=== PATIENT | male | born 1940 | race Caucasian/White ===

== ENCOUNTER 2018-08-12 23:07 | Inpatient (IN) ==
[2018-08-13] MEDS ORDERED: PROCHLORPERAZINE 5 MG in SYRINGE 4 ML IV PRN (01:10)
[2018-08-13] MEDS ORDERED: GLUCAGON FOR INJ 1 MG VIAL SQ PRN (01:10)
[2018-08-13] MEDS ORDERED: DEXTROSE 50% 50 ML SYRINGE IV PRN (01:10)
[2018-08-13] MEDS ORDERED: ACETAMINOPHEN 325 MG TAB PO PRN (01:10)
[2018-08-13] MEDS ORDERED: TRAMADOL HCL 50 MG TABLET PO PRN (01:10)
[2018-08-13] MEDS ORDERED: CARBOHYDRATES FOR HYPOGLYCEMIA PO PRN (01:10)
[2018-08-13] MEDS ORDERED: GLUCOSE 40% GEL 15 GM TUBE PO PRN (01:10)
[2018-08-13] MEDS ORDERED: GLUCOSE 10 TABS/TUBE PO PRN (01:10)
[2018-08-13] MEDS ORDERED: MoRPHine SULFATE 4 MG/ML 1 ML CARP\\VIAL IV PRN (01:10)
[2018-08-13] MEDS ORDERED: NITROGLYCERIN SL 0.4 MG/TAB TAB SL PRN (01:10)
[2018-08-13 01:59] LABS: Basophils # (auto) 0.02 K/uL (0-0.2); Basophils % (auto) 0.3 %; Eosinophils # (auto) 0.12 K/uL (0-0.5); Eosinophils % (auto) 1.6 %; Hematocrit (blood only) 39.7 % (42-52); Hemoglobin 12.7 g/dL (14.0-18.0); Immature Granulocytes # (auto) 0.01 K/uL (0.00-0.02); Immature Granulocytes % (auto) 0.1 %; Lymphocytes # (auto) 1.85 K/uL (1.2-3.4); Lymphocytes % (auto) 24.7 %; Mean Corpuscular Volume 90.2 fL (80-100); Monocytes # (auto) 1.03 K/uL (0.11-0.59); Monocytes % (auto) 13.7 %; Neutrophils # (auto) 4.47 K/uL (1.4-6.5); Neutrophils % (auto) 59.6 %; Platelet Count 175 K/uL (130-400); RDW Coefficient of Variation 14.5 % (11.5-14.5); RDW Standard Deviation 48.1 fL (36.4-46.3)
[2018-08-13 02:00] LABS: HCO3 ABG 29 mmol/L (19-24); Oxygen Saturation ABG 94.5 % (90-95); PCO2 ABG 44 mmHg (35-46); PO2 ABG 70 mm/Hg (80-95); pH ABG 7.44 (7.35-7.45)
[2018-08-13 02:04] LABS: Allen Test Pos (Pos)
[2018-08-13 02:08] LABS: Partial Thromboplastin Ratio 1.1; Partial Thromboplastin Time 27.5 Seconds (21.0-31.0)
[2018-08-13 02:17] LABS: Alanine Aminotransferase 19 U/L (12-78); Albumin Level 3.4 gm/dl (3.4-5.0); Aspartate Aminotransferase 27 U/L (15-37); BUN Creatinine Ratio 13.7 (10-20); Blood Urea Nitrogen 12 mg/dl (7-18); Calcium 8.9 mg/dl (8.5-10.1); Carbon Dioxide 28 mmol/L (21-32); Chloride 101 mmol/L (98-107); Est GFR (African American) 93.2; Est GFR (Non-African American) 80.4; Glucose 221 mg/dl (70-99); Magnesium 2.6 mg/dl (1.8-2.4); Sodium 135 mmol/L (136-145)
[2018-08-13 02:29] LABS: Albumin Globulin Ratio 0.8 (0.9-2); Alkaline Phosphatase 107 U/L (45-117); Bilirubin,Total 1.4 mg/dl (0.2-1); Globulin 4.1 gm/dl (2.5-4.0); Total Protein 7.5 gm/dl (6.4-8.2)
[2018-08-13] MEDS ORDERED: INSULIN GLARGINE SOLOSTAR 100 UNITS/ML 3 ML PEN SC ONE (02:32)
[2018-08-13] MEDS ORDERED: XOPENEX/ATROVENT 1.25mg/0.5MG NEB COMBO NEB STA (02:37)
[2018-08-13] MEDS ORDERED: XOPENEX/ATROVENT 1.25mg/0.5MG NEB COMBO NEB PRN (02:37)
[2018-08-13] MEDS: INSULIN ASPART 100 UNITS/ML 3 ML PEN SC SCH ×5 (02:45→20:51)
--- NOTE | 2018-08-13 02:45 | History & Physical Report ---
Date of Service August 13, 2018 Assessment & Plan (1) ACS (acute coronary syndrome): hx CAD sp CABG, hx angioplasty Decompensated heart failure chronic systolic heart failure secondary to ischemic cardiomyopathy hx ICD chronic respiratory failure on home O2 Possible aspiration risk Traumatic L rib fracture, L 5th metacarpal fracture from mechanical fall last month hypertension, BP on the lower side DM 2, insulin requiring, suboptimal control as of recent inpatient hemoglobin A1c of 9.7 last July 2018 chronic anemia, hemoglobin at baseline past tobacco abuse PCU Antiplatelet Rx , beta-carrie (lower dose given borderline BP), statin; IV heparin Trend cardiac markers Strict I/Os, daily weights, CHF education TTE, Cardiology consult RE ACS, CHF Retrieve recent outpatient [facility] Cardiology records. Swallow eval Analgesia for traumatic left rib fracture, encourage incentive spirometry Orthopedics consult L fifth metacarpal fracture, continue hand splint Basal insulin adjusted for n.p.o. sips state pending swallow eval, ISS BG goal 140-180 PT/OT eval DVT prophylaxis. Heparin Full code History of Present Illness Chief Complaint: Shortness of breath Primary Care Provider: Adrienne Bhat History obtained from patient, family, and records. Patient is a fair historian. Medical history significant for chronic systolic heart failure secondary to ischemic cardiomyopathy, CAD status post CABG (1999, [facility]), hx of angioplasty/ICD (04/2018, [facility]), chronic respiratory failure on home O2, hypertension, hyperlipidemia, DM 2, insulin requiring, chronic anemia baseline hemoglobin of 12, past tobacco abuse. Recent confinement May 2018 [facility] for decompensated heart failure. 3 weeks ago. patient had a mechanical fall at home causing some soreness on the left chest and left forearm. Patient evaluated at [facility]. Imaging negative for rib fractures. The last week patient noted increasing shortness of breath mostly on exertion, feels he is retaining fluid again. Denies chest pain other than left-sided rib pain from few weeks ago. No unusual cough symptoms. Some leg swelling noted. Compliant with home diuretics. Patient admits that he has trouble complying with fluid restriction recommended by [facility] chemical educator. Patient brought to [facility] emergency room for evaluation yesterday afternoon. SBP noted to be 90s, patient received fluid bolus as per ER note. CT chest showed : 1. Acute appearing nondisplaced left lateral seventh rib fracture. 2. Moderate bilateral pleural effusions. 3. No pneumothorax. 4. Moderate compressive subsegmental atelectasis. 5. No pulmonary emboli are seen. 6. 48 x 40 mm ascending aortic aneurysm. CT abdomen pelvis showed : 1. Stranding in the subcutaneous fat in the left flank appears asymmetric, may reflect an area of soft tissue contusion. 2. No traumatic injury in the abdominal pelvic viscera. No acute bony pathology. 3. Incidental findings include question early cirrhosis, which may be cardiogenic, distal diverticulosis. Scattered mild free fluid probably related to CHF or cirrhosis. Left hand x-ray showed: IMPRESSION: Acute intra-articular fracture, base of the fifth metacarpal, minimal dorsal angulation of the diaphysis. EKG showed paced rhythm. Troponin noted to be 3.7. Patient transferred to [facility] for Cardiology services due to bed unavailability at [facility]. Left hand splint applied at [facility] emergency room prior to departure for [facility]. Patient noted to cough when PCU nurse attempted to give him some water/ice. Medical History as above Surgical History : CABG, ICD, eye surgery, humerus surgery Family History : Heart disease, stroke Personal/Social history : Past tobacco abuse, no EtOH intake, retired box truck washer Allergies Allergy/AdvReac Type Severity Reaction Status Date / Time SUZETTE Inhibitors AdvReac Verified 08/13/18 01:08 Home Medications Home Medications Medication Instructions Recorded Confirmed Type Novolog Mix 70-30 U-100 Insuln 50 units SC BID 08/13/18 08/13/18 History amitriptyline 10 mg PO HS 08/13/18 08/13/18 History aspirin [Aspir-81] 81 mg PO DAILY 08/13/18 08/13/18 History clopidogrel 75 mg PO DAILY 08/13/18 08/13/18 History docusate sodium 100 mg PO BID 08/13/18 08/13/18 History ezetimibe-simvastatin [Vytorin 1 tab PO DAILY 08/13/18 08/13/18 History 10-40] famotidine 20 mg PO BID 08/13/18 08/13/18 History furosemide 40 mg PO QPM 08/13/18 08/13/18 History furosemide 80 mg PO QAM 08/13/18 08/13/18 History gabapentin 300 mg PO TID 08/13/18 08/13/18 History isosorbide mononitrate 120 mg PO DAILY 08/13/18 08/13/18 History metoprolol succinate [Toprol XL] 100 mg PO DAILY 08/13/18 08/13/18 History omeprazole 20 mg PO DAILY 08/13/18 08/13/18 History polyethylene glycol 3350 [Miralax] 17 g PO DAILY 08/13/18 08/13/18 History potassium chloride 20 meq PO TID 08/13/18 08/13/18 History spironolactone 25 mg PO DAILY 08/13/18 08/13/18 History tamsulosin 0.4 mg PO DAILY 08/13/18 08/13/18 History Past Med/Surg History Medical History CAD (coronary artery disease) Diabetes mellitus, type 2 Dyslipidemia HTN (hypertension) Humeral shaft fracture Recurrent falls while walking Surgical History AICD (automatic cardioverter/defibrillator) present History of cardiac cath History of coronary artery bypass graft Social History Current Living Situation: Spouse Feels Safe at Home: Yes Safety Concerns: Feels Safe At This Time Smoking Status: Never smoker Do You Dip or Chew Tobacco: No Second Hand Exposure: No Tobacco Cessation Education Requested by Patient: No Hx Alcohol Use: No Hx Substance Use: No Beliefs That Will Affect Care: None Communication Ability: Effective Review of Systems As per HPI, all 10 systems reviewed, all other ROS negative Physical Exam 2 Vital Signs (Past 24 Hours): Last Vital Signs Pulse 82 08/13/18 02:05 Pulse Ox 93 08/13/18 01:10 Physical Exam: GENERAL: Comfortable, pleasant, no respiratory distress SKIN: Pallor , warm HEENT: Pale palpebral conjunctivae, no ptosis, moist buccal mucosa, nasal cannula in place NECK : Supple, no tenderness CHEST : Decreased breath sounds, occasional wheeze , tenderness left chest wall HEART : Diminished S1-S2, systolic murmur ABDOMEN: Some distention, nontender EXTREMITIES : minimal LE swelling/tenderness, LUE splint NEUROLOGIC : Coherent, no facial asymmetry, no other gross focality, gait and stance not assessed Results & Data Laboratory Results Laboratory Results WBC 7.50 K/uL (4.8-10.8) 08/13/18 01:46 RBC 4.40 M/uL (4.7-6.1) L 08/13/18 01:46 Hgb 12.7 g/dL (14.0-18.0) L 08/13/18 01:46 Hct 39.7 % (42-52) L 08/13/18 01:46 MCV 90.2 fL (80-100) 08/13/18 01:46 MCH 28.9 pg (25-34) 08/13/18 01:46 MCHC 32.0 g/dL (32-36) 08/13/18 01:46 RDW Std Deviation 48.1 fL (36.4-46.3) H 08/13/18 01:46 RDW Coeff of Joana 14.5 % (11.5-14.5) 08/13/18 01:46 Plt Count 175 K/uL (130-400) 08/13/18 01:46 MPV 11.0 fL (7.4-10.4) H 08/13/18 01:46 Immature Gran % (Auto) 0.1 % 08/13/18 01:46 Neut % (Auto) 59.6 % 08/13/18 01:46 Lymph % (Auto) 24.7 % 08/13/18 01:46 Morris % (Auto) 13.7 % 08/13/18 01:46 Eos % (Auto) 1.6 % 08/13/18 01:46 Baso % (Auto) 0.3 % 08/13/18 01:46 Immature Gran # (Auto) 0.01 K/uL (0.00-0.02) 08/13/18 01:46 Neut # (Auto) 4.47 K/uL (1.4-6.5) 08/13/18 01:46 Lymph # (Auto) 1.85 K/uL (1.2-3.4) 08/13/18 01:46 Morris # (Auto) 1.03 K/uL (0.11-0.59) H 08/13/18 01:46 Eos # (Auto) 0.12 K/uL (0-0.5) 08/13/18 01:46 Baso # (Auto) 0.02 K/uL (0-0.2) 08/13/18 01:46 APTT 27.5 Seconds (21.0-31.0) 08/13/18 01:46 PTT Ratio 1.1 08/13/18 01:46 ABG pH 7.44 (7.35-7.45) 08/13/18 01:46 ABG pCO2 44 mmHg (35-46) 08/13/18 01:46 ABG pO2 70 mm/Hg (80-95) L 08/13/18 01:46 ABG HCO3 29 mmol/L (19-24) H 08/13/18 01:46 ABG O2 Saturation 94.5 % (90-95) 08/13/18 01:46 ABG Base Excess 4.0 mEq/L (-9-1.8) H 08/13/18 01:46 Adiel Test Pos (Pos) 08/13/18 01:46 Oxygen Given 5L 08/13/18 01:46 Sodium 135 mmol/L (136-145) L 08/13/18 01:46 Potassium 4.0 mmol/L (3.5-5.1) 08/13/18 01:46 Chloride 101 mmol/L (98-107) 08/13/18 01:46 Carbon Dioxide 28 mmol/L (21-32) 08/13/18 01:46 Anion Gap 6.0 (3-11) 08/13/18 01:46 BUN 12 mg/dl (7-18) 08/13/18 01:46 Creatinine 0.91 mg/dl (0.6-1.4) 08/13/18 01:46 Est Cr Clr Drug Dosing Not Reportable 08/13/18 01:46 Est GFR ( Amer) 93.2 08/13/18 01:46 Est GFR (Non-Af Amer) 80.4 08/13/18 01:46 BUN/Creatinine Ratio 13.7 (10-20) 08/13/18 01:46 Glucose 221 mg/dl (70-99) H 08/13/18 01:46 POC Glucose 203 (70-99) H 08/13/18 01:35 Calcium 8.9 mg/dl (8.5-10.1) 08/13/18 01:46 Magnesium 2.6 mg/dl (1.8-2.4) H 08/13/18 01:46 Total Bilirubin 1.4 mg/dl (0.2-1) H 08/13/18 01:46 AST 27 U/L (15-37) 08/13/18 01:46 ALT 19 U/L (12-78) 08/13/18 01:46 Alkaline Phosphatase 107 U/L (45-117) 08/13/18 01:46 Troponin I 3.190 ng/ml (0-0.045) H* 08/13/18 01:46 Total Protein 7.5 gm/dl (6.4-8.2) 08/13/18 01:46 Albumin 3.4 gm/dl (3.4-5.0) 08/13/18 01:46 Globulin 4.1 gm/dl (2.5-4.0) H 08/13/18 01:46 Albumin/Globulin Ratio 0.8 (0.9-2) L 08/13/18 01:46 TSH 0.989 uIu/ml (0.300-4.500) 08/13/18 01:46 Diagnostic Findings Chest x-ray per my interpretation CHF EKG as per my interpretation : Paced rhythm
[2018-08-13] MEDS ORDERED: LEVALBUTEROL 1.25MG/0.5ML NEB INH STA (03:01)
[2018-08-13] MEDS ORDERED: IPRATROPIUM BROMIDE NEB SOLN 0.02% 2.5 ML VIAL INH STA (03:01)
[2018-08-13] MEDS ORDERED: LEVALBUTEROL 1.25MG/0.5ML NEB INH PRN (03:02)
[2018-08-13] MEDS ORDERED: IPRATROPIUM BROMIDE NEB SOLN 0.02% 2.5 ML VIAL INH PRN (03:02)
[2018-08-13] MEDS ORDERED: Heparin IV Standard *NO* Bolus SCH (03:06)
[2018-08-13] MEDS ORDERED: FUROSEMIDE 20 MG in SYRINGE 0 ML IV ONE ×2 (03:15→05:15)
[2018-08-13 03:17] LABS: INR 1.2 (0.9-1.1)
[2018-08-13] MEDS ORDERED: HEPARIN STANDARD DEXTROSE 25,000 UNITS/500 ML IV SCH (03:53)
[2018-08-13] MEDS ORDERED: INSULIN GLARGINE SOLOSTAR 100 UNITS/ML 3 ML PEN SQ SCH ×2 (05:00→09:00)
--- NOTE | 2018-08-13 06:48 | XRay Report ---
XR chest 1V portable CLINICAL HISTORY: resp distress dyspnea COMPARISON STUDY: No previous studies for comparison. FINDINGS: Mild cardia megaly. Prior median sternotomy. Prominent pulmonary vasculature. Diaphragms ar e smooth. Implantable cardiac pacemaker. IMPRESSION: Mild congestive heart failure. The above report was generated using voice recognition software. It may contain grammatical, syntax or spelling errors. Electronically signed by: Eric Toledo M.D. 08/13/2018 6:47 AM
[2018-08-13] MEDS: ASPIRIN 81 MG ECTAB PO SCH (08:29)
[2018-08-13] MEDS: FAMOTIDINE 20 MG TAB PO SCH ×2 (08:29→19:59)
[2018-08-13] MEDS: EZETIMIBE/SIMVASTATIN 10/40MG 1 TAB TAB PO SCH (08:29)
[2018-08-13] MEDS: CLOPIDOGREL BISULFATE 75 MG TAB PO SCH (08:30)
[2018-08-13] MEDS: DOCUSATE SODIUM 100 MG CAP PO SCH ×2 (08:38→19:52)
[2018-08-13 10:13] LABS: Partial Thromboplastin Ratio 2.4
--- NOTE | 2018-08-13 10:32 | Orthopedic Consultation ---
Date of Consultation August 13, 2018 Assessment & Plan (1) Hand fracture, left: Subacute fracture of the left hand, will confirm fracture and positioning with x-rays of the hand and wrist. Continue volar splint for comfort, nonweightbearing left upper extremity, ice and elevation. Thank you for the consultation History of Present Illness Reason for Consultation: Left hand fracture Attending Physician: Liliane Gross DO History of Present Illness Patient is a 78-year-old male who was admitted to [facility] secondary to ACS protocol. Elevated troponins. Reports fall 1 month prior for which she sustained rib fractures, at [facility]. He has been in a rehab center since his fall. Reports x-ray done at that time of his left hand which demonstrated a fracture, patient a poor historian and unsure where his injury is. Patient denies any repeat injury or falls onto the left hand in the last 4 weeks. Does admit the pain to the ulnar aspect of his hand as well as ulnar aspect of his wrist. Denies any numbness or tingling left upper extremity or associated and wheeze. He has not followed up with orthopedics for his left hand. Allergies Allergy/AdvReac Type Severity Reaction Status Date / Time SUZETTE Inhibitors AdvReac Verified 08/13/18 01:08 Home Medications Home Medications Medication Instructions Recorded Confirmed Type Novolog Mix 70-30 U-100 Insuln 50 units SC BID 08/13/18 08/13/18 History amitriptyline 10 mg PO HS 08/13/18 08/13/18 History aspirin [Aspir-81] 81 mg PO DAILY 08/13/18 08/13/18 History clopidogrel 75 mg PO DAILY 08/13/18 08/13/18 History docusate sodium 100 mg PO BID 08/13/18 08/13/18 History ezetimibe-simvastatin [Vytorin 1 tab PO DAILY 08/13/18 08/13/18 History 10-40] famotidine 20 mg PO BID 08/13/18 08/13/18 History furosemide 40 mg PO QPM 08/13/18 08/13/18 History furosemide 80 mg PO QAM 08/13/18 08/13/18 History gabapentin 300 mg PO TID 08/13/18 08/13/18 History isosorbide mononitrate 120 mg PO DAILY 08/13/18 08/13/18 History metoprolol succinate [Toprol XL] 100 mg PO DAILY 08/13/18 08/13/18 History omeprazole 20 mg PO DAILY 08/13/18 08/13/18 History polyethylene glycol 3350 [Miralax] 17 g PO DAILY 08/13/18 08/13/18 History potassium chloride 20 meq PO TID 08/13/18 08/13/18 History spironolactone 25 mg PO DAILY 08/13/18 08/13/18 History tamsulosin 0.4 mg PO DAILY 08/13/18 08/13/18 History Patient History Medical History CAD (coronary artery disease) Diabetes mellitus, type 2 Dyslipidemia HTN (hypertension) Humeral shaft fracture Recurrent falls while walking Surgical History AICD (automatic cardioverter/defibrillator) present History of cardiac cath History of coronary artery bypass graft Social History Current Living Situation: Spouse Feels Safe at Home: Yes Safety Concerns: Feels Safe At This Time Smoking Status: Never smoker Do You Dip or Chew Tobacco: No Second Hand Exposure: No Tobacco Cessation Education Requested by Patient: No Hx Alcohol Use: No Hx Substance Use: No Beliefs That Will Affect Care: None Communication Ability: Effective Review of Systems Constitutional: as per Subjective / HPI Physical Exam 2 Vital Signs (Past 24 Hours): Last Vital Signs Temp 37 C 08/13/18 07:37 Pulse 88 08/13/18 07:37 Resp 20 08/13/18 07:37 BP 112/61 08/13/18 07:37 Pulse Ox 96 08/13/18 07:37 Physical Exam: Left upper extremity neurovascular sensory intact, +2 radial pulse, capillary refill less than 2 seconds, intact median/radial/ulnar/AIN/PIN , compartment soft, there is point tenderness to the midshaft of the fourth metatarsal and the fifth metatarsal, mild edema, there is point tenderness to the ulnar styloid. Painless range of motion of the wrist, there is mild discomfort with range of motion of the fourth and fifth digits. Skin is clean dry and intact.
[2018-08-13 10:34] LABS: Partial Thromboplastin Time 63.1 Seconds (21.0-31.0)
--- NOTE | 2018-08-13 11:05 | XRay Report ---
XR hand LT min 3V routine CLINICAL HISTORY: hx hand fracture trauma. Pain. COMPARISON: None. DISCUSSION: Patient is in casting material. Moderate generalized degenerative change. No well-defined fracture within limitations discussed above. There is no evidence for soft tissue swelling. IMPRESSION: Degenerative change. Casting material obscures detail. The above report was generated using voice recognition software. It may contain grammatical, syntax or spelling errors. Electronically signed by: Eric Toledo M.D. 08/13/2018 11:04 AM
--- NOTE | 2018-08-13 11:06 | XRay Report ---
XR wrist LT min 3V routine CLINICAL HISTORY: hx hand fracture, fall 4 weeks prior COMPARISON: None. DISCUSSION: Casting disc material obscures detail. Moderate generalized degenerative change. Possible old fracture distal radius. There is no evidence for soft tissue swelling. IMPRESSION: Limited study suggesting a potential old fracture distal radius. Details obscured by over lying casting material. The above report was generated using voice recognition software. It may contain grammatical, syntax or spelling errors. Electronically signed by: Eric Toledo M.D. 08/13/2018 11:05 AM
[2018-08-13] MEDS: GABAPENTIN 300 MG CAP PO SCH ×2 (14:31→19:58)
--- NOTE | 2018-08-13 14:31 | Hospitalist Progress Note ---
Date of Service August 13, 2018 Assessment & Plan (1) Acute on chronic systolic heart failure: History of CAD status post CABG and angioplasty. Elevated troponin, but no chest pain is reported. Clinically this is more consistent with demand ischemia in heart failure. Heparin stopped. He appears somewhat volume up with LE swelling, lungs are clear. Lasix for diuresis. Monitor daily standing weights. Continue medical management including aspirin, Plavix, Vytorin, Metoprolol. He is intolerant of ACEI. Uncertain reaction, may tolerate ARB or he also meets criteria for initiating Entresto unless he had angioedema with ACEI in the past. Will defer this to Cardiology. ICD in place. (2) Chronic hypoxemic respiratory failure: on home oxygen (3) Left wrist fracture: (4) Left rib fracture: (5) Status post fall: 4 weeks ago. Ortho splinted wrist. Cont supportive care for pain control of fractures. (6) DMII (diabetes mellitus, type 2): Uncontrolled, increase Lantus and tighten control of ISS and carb coverage. (7) Anemia: chronic and at baseline. (8) Conjunctivitis: Likely viral in the setting of recent cold symptoms and no purulent drainage, however, will empirically treat with antibiotic drops and offer Refresh Tears for comfort. It is possible this is allergic conjunctivitis, however, we do not have antihistamine ophthalmic drops on formulary, and I feel a systemic antihistamine is a poor choice in this elderly man already exhibiting some confusion. (9) DVT prophylaxis: heparin drip, which will stop. Start Lovenox in am. Liliane Gross DO [facility] Hospitalist Subjective 78-year-old man transferred from [place] for chest pain and shortness of breath. The patient states that at baseline he has decreased exercise tolerance and shortness of breath. He is on home oxygen at 2 L. Per the nurse his spouse was telling her he requires 3 L with ambulation. The patient has swelling in his legs and feet which is intermittent for him. He states that when he wakes up in the morning they are not as bad but then as the day progresses the swelling progresses however, this comes and goes. He denies any fevers or chills he denies any cough. He denies any weight gain. He reports being approximately 210 to to 15 pounds at baseline. He weighs 211 pounds today. When I pressed him for the reason he sought immediate emergent medical attention in the setting of these chronic medical symptoms, he said "I felt like I was just going to ." He states that he thinks he scared himself into going. He reports none of his chronic medical symptoms were actually worse. Physical Exam 2 Vital Signs (Past 24 Hours): Last Vital Signs Temp 36.5 C 08/13/18 11:02 Pulse 83 08/13/18 11:02 Resp 20 08/13/18 11:02 BP 97/61 L 08/13/18 11:02 Pulse Ox 98 08/13/18 11:02 CONSTITUTIONAL: WNWD, vitals as above, generally well-appearing EYES: injected conjuntiva on the L with clear irritation, no scleral icterus ENT: MMM NECK: trachea midline, no lymphadenopathy, normal thyroid RESPIRATORY: clear to auscultation bilaterally, no crackles, rales or wheezes, normal respiratory effort CARDIOVASCULAR: regular rate and rhythm, S1 and 2 heard without murmurs, gallops or rubs, no JVD, lower extremity swelling bilaterally GASTROINTESTINAL: normal bowel sounds, soft, nontender, nondistended MUSCULOSKELETAL: generalized weakness, L wrist in splint SKIN: warm and dry NEUROLOGIC: No facial palsy, no dysarthria. CN 2-12 grossly intact, normal cognition but obvious memory issues, oriented, normal speech PSYCHIATRIC: alert cooperative and oriented to person, place and time. Results & Data Laboratory Results Cardiac Enzymes 08/13/18 Range/Units 09:45 Troponin I 2.040 H* (0-0.045) ng/ml Diagnostic Findings XR wrist LT min 3V routine CLINICAL HISTORY: hx hand fracture, fall 4 weeks prior COMPARISON: None. DISCUSSION: Casting disc material obscures detail. Moderate generalized degenerative change. Possible old fracture distal radius. There is no evidence for soft tissue swelling. IMPRESSION: Limited study suggesting a potential old fracture distal radius. Details obscured by overlying casting material. XR chest 1V portable CLINICAL HISTORY: resp distress dyspnea COMPARISON STUDY: No previous studies for comparison. FINDINGS: Mild cardia megaly. Prior median sternotomy. Prominent pulmonary vasculature. Diaphragms are smooth. Implantable cardiac pacemaker. IMPRESSION: Mild congestive heart failure. Medications Administered Current Inpatient Medications Acetaminophen (Tylenol) 650 mg PO Q4H PRN PRN Reason: Pain or Fever Stop: 09/12/18 01:09 Amitriptyline HCl (Elavil) 10 mg PO HS [facility] Stop: 09/12/18 20:59 Last Admin: 08/13/18 19:58 Dose: 10 mg Artificial Tears (Artificial Tears) 2 drops OPL Q4H PRN PRN Reason: dry, irritated eyes Stop: 09/12/18 17:41 Aspirin (Ecotrin) 81 mg PO DAILY [facility] Stop: 09/12/18 08:59 Last Admin: 08/13/18 08:29 Dose: 81 mg Clopidogrel Bisulfate (Plavix) 75 mg PO DAILY [facility] Stop: 09/12/18 08:59 Last Admin: 08/13/18 08:30 Dose: 75 mg Dextrose (Dextrose 50%) 25 - 50 ml IV UD PRN; Protocol PRN Reason: Hypoglycemia Protocol Stop: 09/12/18 01:09 Docusate Sodium (Colace) 100 mg PO BID [facility] Stop: 09/12/18 08:59 Last Admin: 08/13/18 19:52 Dose: Not Given Ezetimibe/Simvastatin (Vytorin 10/40 Mg) 1 tab PO DAILY [facility] Stop: 09/12/18 08:59 Last Admin: 08/13/18 08:29 Dose: 1 tab Famotidine (Pepcid) 20 mg PO BID [facility] Stop: 09/12/18 08:59 Last Admin: 08/13/18 19:59 Dose: 20 mg Gabapentin (Neurontin) 300 mg PO TID [facility] Stop: 09/12/18 13:59 Last Admin: 08/13/18 19:58 Dose: 300 mg Glucagon (Glucagen) 1 mg SQ UD PRN; Protocol PRN Reason: Hypoglycemia Protocol Stop: 09/12/18 01:09 Glucose (Glucose 40%) 15 - 30 gm PO UD PRN; Protocol PRN Reason: Hypoglycemia Protocol Stop: 09/12/18 01:09 Glucose (Dex4 Glucose) 4 - 8 tabs PO UD PRN; Protocol PRN Reason: Hypoglycemia Protocol Stop: 09/12/18 01:09 Prochlorperazine 5 mg/ Syringe 5 mls @ 5 mls/min IV Q6H PRN PRN Reason: Nausea And Vomiting Stop: 09/12/18 01:09 Insulin Aspart (Novolog Flexpen) 0 units SC ACHS [facility] Stop: 09/12/18 01:59 Last Admin: 08/13/18 20:51 Dose: 1 units Insulin Glargine (Lantus Solostar Pen) 15 units SQ BID [facility] Stop: 09/12/18 20:59 Last Admin: 08/13/18 20:51 Dose: 15 units Ipratropium [place] (Atrovent 0.02% 0.5mg/2.5ml) 0.5 mg INH Q4H PRN PRN Reason: Shortness Of Breath Or Wheezing Stop: 09/12/18 03:01 Levalbuterol HCl (Xopenex 1.25mg/0.5ml Neb) 1.25 mg INH Q4H PRN PRN Reason: Shortness Of Breath Or Wheezing Stop: 09/12/18 03:01 Metoprolol Tartrate (Lopressor) 12.5 mg PO BID [facility] Stop: 09/12/18 20:59 Last Admin: 08/13/18 19:58 Dose: 12.5 mg Miscellaneous (Carbohydrates For Hypoglycemia) 15 - 30 gm PO UD PRN PRN Reason: Hypoglycemia Treatment Stop: 09/12/18 01:09 Morphine Sulfate (Morphine Sulfate) 4 mg IV Q4H PRN PRN Reason: Pain Stop: 08/27/18 01:09 Nitroglycerin (Nitrostat) 0.4 mg SL UD PRN PRN Reason: Chest Pain Stop: 09/12/18 01:09 Pantoprazole Sodium (Protonix) 40 mg PO DAILY [facility] Stop: 09/13/18 08:59 Polyethylene Glycol (Miralax Powder Packet) 17 gm PO DAILY [facility] Stop: 09/13/18 08:59 Polymyxin/Trimethoprim Sulfate (Polytrim) 2 drops OPL QID [facility] Stop: 08/18/18 20:59 Last Admin: 08/13/18 19:56 Dose: 2 drops Tamsulosin HCl (Flomax) 0.4 mg PO DAILY [facility] Stop: 09/13/18 08:59 Tramadol HCl (Ultram) 25 mg PO Q4H PRN PRN Reason: Pain Stop: 09/12/18 01:09
--- NOTE | 2018-08-13 16:57 | Consultation Report ---
DATE OF CONSULTATION: 08/13/2018 Cardiology Consultation. CONSULTATION REQUESTED BY: Dr. Montoya. REASON FOR CONSULTATION: Acute decompensated systolic heart failure and troponin elevation. HISTORY OF PRESENT ILLNESS: Mr. Tapia is a very pleasant, yet somewhat confused 78-year-old gentleman, who was sent to [facility] from [facility] on 08/13/2018 after the patient presented with complaints of fluid retention. The patient is a little confused during the time of the interview and does not remember when he went to the Emergency Department or why but does remember that he has been filling up with fluid lately. He states that he was recently admitted to [facility] for decompensated heart failure. Unfortunately, no significant workup was undertaken at that time, and the patient's primary inspector type is not within [facility] outpatient medical records either, but the patient was apparently diuresed at [facility] and discharged to rehab, and then from the rehab, he was discharged to home. He did have a fall at home several weeks ago, which caused some left chest and left forearm discomfort, but again he notes over the last several days he has been having some increasing dyspnea with exertion and increasing lower extremity edema, but he denies experiencing any chest pain, palpitations, lightheadedness, dizziness, or syncope. He went to [facility] on 08/12/2018. There he was found to be relatively hypotensive and given IV bolus and then requested that he be transferred to [facility] after several other hospitals were full. Currently, the patient is at rest without complaint. PAST SURGICAL HISTORY: 1. Coronary bypass grafting surgery in 1999 at [facility], unknown grafts. 2. Recent ICD placement, 04/2018. MEDICAL ILLNESSES: 1. Coronary artery disease, status post CABG. 2. Ischemic cardiomyopathy, EF 33% by outpatient cardiac MRI with very limited viability. 3. Diabetes. 4. Dyslipidemia. 5. Hypertension. 6. Ambulatory dysfunction with recurrent falls. 7. Questionable dementia. FAMILY HISTORY: Noncontributory. SOCIAL HISTORY: Patient is a former smoker. Denies any alcohol or recreational drug use. REVIEW OF SYSTEMS: As per HPI, all other review of systems reviewed and negative at this time. ALLERGIES: SUZETTE INHIBITORS. MEDICATIONS AN OUTPATIENT: 1. Aspirin 81 mg daily. 2. Plavix 75 mg daily. 3. Vytorin 10/40 mg daily. 4. Lasix 40 mg q.p.m. and 80 mg q.a.m. 5. Neurontin 300 mg t.i.d. 6. Imdur 120 mg daily. 7. Metoprolol succinate 100 mg daily. 8. Spironolactone 25 mg daily. 9. Potassium chloride 20 mEq t.i.d. 10. Insulin as directed. PHYSICAL EXAMINATION: VITAL SIGNS: Temperature 36.5, pulse 83, respiratory rate 12, blood pressure 97/61. GENERAL: Awake, alert, oriented to person and place but not time, in no acute distress. HEENT: Normocephalic and atraumatic. Pupils equal, round, and reactive to light and accommodation. Extraocular muscles intact. Anicteric sclerae. Moist mucous membranes. NECK: No JVD, no bruit. CARDIOVASCULAR: Regular but distant. Unable to appreciate any murmurs, rubs, or gallops. PULMONARY: Scant bibasilar crackles, otherwise clear. No rhonchi or wheezing. ABDOMEN: Bowel sounds x4, soft. No rebound, guarding, tenderness. No organomegaly. EXTREMITIES: No clubbing or cyanosis. +2 pedal pulses bilaterally. SKIN: Warm and dry. TEST RESULTS: A 2D echocardiogram was read as no previous study or report in [employer] system for comparison, normal LV chamber size, with moderate concentric LVH, sigmoid appearing septum, severely reduced LV systolic function, EF 30%-35%, akinesis of the anterior, inferior, septal, and apical orozco. Dyskinetic anterior septal wall motion consistent with pacemaker activation. Normal wall motion of the inferior lateral wall with moderate hypokinesis of the inferior and anterior lateral orozco. Reduced RV systolic function, moderate aortic valve sclerosis without stenosis, moderate to severe mitral regurgitation, mild to moderate tricuspid regurgitation. Severe left atrial enlargement. Of note, the patient's wall motion abnormalities are consistent with wall motion abnormalities noted on cardiac MRI from 03/08/2018. LABORATORY STUDIES OF SIGNIFICANCE: Troponin on presentation of 3.2. Followup troponin of 2.04. IMPRESSION: 1. Acute decompensated systolic heart failure. 2. Troponin elevation, likely secondary to demand ischemia. 3. Underlying severe coronary artery disease with very limited viability by cardiac MRI, 02/2018. 4. Ischemic cardiomyopathy, ejection fraction 30%-35%, status post ICD placement. RECOMMENDATIONS: It is my pleasure to see Mr. Tapia in consultation today. From a cardiac standpoint, given the patient's extensive history, limited viability, and lack of chest discomfort, I do not believe that further ischemic workup or intervention would be beneficial at this time. Instead, the patient does examine his volume overload, and his initial complaints were that of volume overload, so I recommended continuing with the diuresis that has already been started. Obviously his electrolytes will be followed and repleted as necessary. Otherwise, he will be continued on all of his other outpatient medical regimen and will follow his volume status clinically.
[2018-08-13] MEDS ORDERED: FUROSEMIDE 40 MG in SYRINGE 0 ML IV ONE (17:00)
[2018-08-13] MEDS ORDERED: ARTIFICIAL TEARS OPL PRN (17:42)
[2018-08-13] MEDS: TRIMETHOPRIM/POLYMYXIN B OPL SCH (19:56)
[2018-08-13] MEDS: METOPROLOL TARTRATE 25 MG TAB PO SCH (19:58)
[2018-08-13] MEDS ORDERED: INSULIN GLARGINE SOLOSTAR 100 UNITS/ML 3 ML PEN SC SCH (20:00)
[2018-08-13] MEDS: INSULIN GLARGINE SOLOSTAR 100 UNITS/ML 3 ML PEN SQ SCH (20:51)
[2018-08-13] MEDS ORDERED: AMITRIPTYLINE HCL 10 MG TAB PO SCH (21:00)
[2018-08-14 06:57] LABS: Hematocrit (blood only) 40.1 % (42-52); Hemoglobin 12.5 g/dL (14.0-18.0); Mean Corpuscular Hgb Conc 31.2 g/dL (32-36); Mean Corpuscular Volume 90.9 fL (80-100); Mean Platelet Volume 11.5 fL (7.4-10.4); Platelet Count 164 K/uL (130-400); RDW Coefficient of Variation 14.6 % (11.5-14.5); RDW Standard Deviation 48.4 fL (36.4-46.3); Red Blood Count 4.41 M/uL (4.7-6.1); White Blood Count 6.72 K/uL (4.8-10.8)
[2018-08-14 07:12] LABS: Partial Thromboplastin Ratio 1.1; Partial Thromboplastin Time 27.8 Seconds (21.0-31.0)
[2018-08-14 07:38] LABS: Calcium 8.9 mg/dl (8.5-10.1); Creatinine Clr Calc Pharmacy 72.6 ml/min; Est GFR (African American) 87.4; Est GFR (Non-African American) 75.4; Potassium 3.5 mmol/L (3.5-5.1)
[2018-08-14] MEDS: DOCUSATE SODIUM 100 MG CAP PO SCH ×2 (07:38→20:34)
[2018-08-14] MEDS: PANTOprazole 40 MG TAB PO SCH (07:43)
[2018-08-14] MEDS: FAMOTIDINE 20 MG TAB PO SCH ×2 (07:43→20:27)
[2018-08-14] MEDS: GABAPENTIN 300 MG CAP PO SCH ×3 (07:44→20:28)
[2018-08-14] MEDS: TRIMETHOPRIM/POLYMYXIN B OPL SCH ×3 (07:44→17:00)
[2018-08-14] MEDS: EZETIMIBE/SIMVASTATIN 10/40MG 1 TAB TAB PO SCH (07:44)
[2018-08-14] MEDS: METOPROLOL TARTRATE 25 MG TAB PO SCH ×2 (07:45→20:28)
[2018-08-14] MEDS: ASPIRIN 81 MG ECTAB PO SCH (07:45)
[2018-08-14] MEDS: TAMSULOSIN HCL 0.4 MG CAP PO SCH (07:47)
[2018-08-14] MEDS: CLOPIDOGREL BISULFATE 75 MG TAB PO SCH (07:47)
[2018-08-14] MEDS: POLYETHYLENE (MIRALAX) 17 GM PACK PO SCH (07:47)
[2018-08-14] MEDS: INSULIN ASPART 100 UNITS/ML 3 ML PEN SC SCH ×4 (07:49→20:28)
[2018-08-14] MEDS: INSULIN GLARGINE SOLOSTAR 100 UNITS/ML 3 ML PEN SQ SCH ×2 (07:50→20:30)
--- NOTE | 2018-08-14 09:44 | Orthopedic Progress Note ---
Date of Service August 14, 2018 Assessment & Plan (1) Radius distal fracture: No definitive fracture of the metacarpals seen on x-ray imaging. Questionable old distal radius fracture, nondisplaced, anatomic alignment. For subacute distal radius fracture patient is a maintain splint and nonweightbearing left upper extremity. We will consult with orthotics for wrist splint. Patient may follow-up in 2 weeks for repeat imaging in the office, . Subjective The patient was seen and examined at bedside sitting in chair. Comfortable, pain well controlled, splint intact. No acute issues. Constitutional: as per Subjective / HPI Physical Exam 2 Vital Signs (Past 24 Hours): Last Vital Signs Temp 36.7 C 08/14/18 06:48 Pulse 92 H 08/14/18 06:48 Resp 18 08/14/18 06:48 BP 111/72 08/14/18 06:48 Pulse Ox 96 08/14/18 06:48 Physical Exam: Left upper extremity is neurovascular sensory intact, + median/ radial/ulnar/AIN/PIN, +2 radial pulse, tenderness palpation over the fourth and fifth metacarpals, tenderness to palpation over the ulnar styloid. Skin clean dry and intact, no swelling or edema or erythema.
[2018-08-14] MEDS: ENOXAPARIN INJ 40 MG/0.4 ML SYR SQ SCH (10:30)
[2018-08-14] MEDS: POTASSIUM CHLORIDE 20 MEQ TABCR PO SCH ×2 (10:30→20:30)
--- NOTE | 2018-08-14 13:30 | Cardiology Progress Note ---
Date of Service August 14, 2018 Assessment & Plan (1) Acute on chronic systolic heart failure: has not significantly diuresed nor does he examine as volume overloaded would d/c IV diuretics and reinstitute outpatient oral regimen no new wall motion on echocardiogram compared to MRI report no sign of active ischemia ok to d/c tele from cardiac standpoint will need f/u with primary natural gas basis trader as outpatient once placement has been determined will not make any other changes to outpatient regimen from cardiac standpoint (2) CAD (coronary artery disease): stable Subjective Pt seen and examined, states that he's feeling better today. His main concern is that he has made peace with God and is ready to if it's his time. Denies cp, sob, palpitations, lightheadedness or dizziness. Tele reviewed: v paced. Physical Exam 2 Vital Signs (Past 24 Hours): Last Vital Signs Temp 36.8 C 08/14/18 12:04 Pulse 72 08/14/18 12:04 Resp 18 08/14/18 12:04 BP 115/66 08/14/18 12:04 Pulse Ox 96 08/14/18 06:48 Physical Exam: General: Awake, alert and oriented x 3. No acute distress. HEENT: Normocephalic, atraumatic. Pupils equal, round and reactive to light and accommodation. Extraocular muscles are intact. Anicteric sclera. Moist mucous membranes. Neck: No JVD. No bruit. Cardiovascular: Regular. Positive S-4. Normal S-1 and S-2. No S-3. 3/6 holosystolic ejection murmur, left sternal border, mid-clavicular line with radiation to the axilla. No rubs. Pulmonary: Clear to auscultation bilaterally. No rales, rhonchi, or wheezing. Abdomen: Bowel sounds x 4, soft. No rebound, guarding or tenderness. No organomegaly. Extremities: No clubbing, cyanosis or edema. +2 pedal pulses bilaterally. Skin: Warm and dry.
--- NOTE | 2018-08-14 15:43 | Hospitalist Progress Note ---
Date of Service August 14, 2018 Assessment & Plan (1) Acute on chronic systolic heart failure: Cont current management including home diuretics. (2) Chronic hypoxemic respiratory failure: Continues on home oxygen (3) Conjunctivitis: not much better today. Will switch to antihistamine drops instead. (4) Left rib fracture: (5) Left wrist fracture: splinted per Ortho (6) DMII (diabetes mellitus, type 2): at goal-Cont ISS/glargine. (7) DVT prophylaxis: Lovenox Full Dispo-likely to home in am pending PT/OT evaluation. Liliane Gross DO [facility] Hospitalist Physical Exam 2 Vital Signs (Past 24 Hours): Last Vital Signs Temp 36.8 C 08/14/18 12:04 Pulse 72 08/14/18 12:04 Resp 18 08/14/18 12:04 BP 115/66 08/14/18 12:04 Pulse Ox 96 08/14/18 06:48
[2018-08-14] MEDS ORDERED: NAPHAZOLIN/PHENIRAMIN OPH SOLN 75 DROPS/5 ML BTL OP PRN (17:26)
[2018-08-14] MEDS: NAPHAZOLIN/PHENIRAMIN OPH SOLN 75 DROPS/5 ML BTL OP SCH ×2 (18:15→20:28)
[2018-08-14] MEDS: FUROSEMIDE 40 MG TAB PO SCH (20:30)
[2018-08-14] MEDS: AMITRIPTYLINE HCL 10 MG TAB PO SCH (20:30)
[2018-08-15] MEDS: NAPHAZOLIN/PHENIRAMIN OPH SOLN 75 DROPS/5 ML BTL OP SCH ×4 (05:02→21:39)
[2018-08-15] MEDS: FUROSEMIDE 80 MG TAB PO SCH (07:52)
[2018-08-15] MEDS: ISOSORBIDE MONO EXTENDED REL 60 MG TABCR PO SCH (07:53)
[2018-08-15] MEDS: TAMSULOSIN HCL 0.4 MG CAP PO SCH (07:53)
[2018-08-15] MEDS: SPIRONOLACTONE 25 MG TAB PO SCH (07:53)
[2018-08-15] MEDS: DOCUSATE SODIUM 100 MG CAP PO SCH ×2 (07:53→21:33)
[2018-08-15] MEDS: EZETIMIBE/SIMVASTATIN 10/40MG 1 TAB TAB PO SCH (07:54)
[2018-08-15] MEDS: ASPIRIN 81 MG ECTAB PO SCH (07:54)
[2018-08-15] MEDS: PANTOprazole 40 MG TAB PO SCH (07:54)
[2018-08-15] MEDS: GABAPENTIN 300 MG CAP PO SCH ×3 (07:55→21:29)
[2018-08-15] MEDS: FAMOTIDINE 20 MG TAB PO SCH ×2 (07:56→21:29)
[2018-08-15] MEDS: POTASSIUM CHLORIDE 20 MEQ TABCR PO SCH ×2 (07:56→21:27)
[2018-08-15] MEDS: CLOPIDOGREL BISULFATE 75 MG TAB PO SCH (07:56)
[2018-08-15] MEDS: ENOXAPARIN INJ 40 MG/0.4 ML SYR SQ SCH (07:57)
[2018-08-15] MEDS: POLYETHYLENE (MIRALAX) 17 GM PACK PO SCH (07:58)
[2018-08-15] MEDS: METOPROLOL SUCC 50MG EXT REL TAB PO SCH (08:01)
[2018-08-15] MEDS: INSULIN ASPART 100 UNITS/ML 3 ML PEN SC SCH ×4 (08:15→21:36)
[2018-08-15] MEDS: INSULIN GLARGINE SOLOSTAR 100 UNITS/ML 3 ML PEN SQ SCH ×2 (08:16→21:34)
--- NOTE | 2018-08-15 17:57 | Hospitalist Progress Note ---
Date of Service August 15, 2018 Assessment & Plan (1) Acute on chronic systolic heart failure: Compensated and around dry weight. Cont current management including home diuretics. Daily weights, low sodium diet. (2) Chronic hypoxemic respiratory failure: Continues on home oxygen. Needs to be increased with ambulation as he desaturates to 84% and takes a few minutes to return to baseline when he exerts himself. Will give him a written script to take home. (3) Conjunctivitis: Improved on antihistamine drops. (4) Left rib fracture: (5) Left wrist fracture: splinted per Ortho, pain is controlled. (6) DMII (diabetes mellitus, type 2): at goal-Cont ISS/glargine. (7) DVT prophylaxis: Lovenox Full Dispo-dc to home in am. Liliane Gross DO [facility] Hospitalist Subjective +desaturation with ambulation during PT eval today after fall at home 4 weeks ago pain is controlled intermittent swelling in legs tolerating PO ROS otherwise negative. Physical Exam 2 Vital Signs (Past 24 Hours): Last Vital Signs Temp 36.3 C L 08/15/18 15:56 Pulse 80 08/15/18 15:56 Resp 20 08/15/18 15:56 BP 98/67 L 08/15/18 15:56 Pulse Ox 96 08/15/18 15:56 CONSTITUTIONAL: WNWD, vitals as above, generally well-appearing EYES: conjunctivae are less irritated today, no scleral icterus ENT: MMM NECK: trachea midline, no lymphadenopathy, normal thyroid RESPIRATORY: clear to auscultation bilaterally, no crackles, rales or wheezes, normal respiratory effort CARDIOVASCULAR: regular rate and rhythm, S1 and 2 heard without murmurs, gallops or rubs, no JVD, no lower extremity swelling bilaterally GASTROINTESTINAL: normal bowel sounds, soft, nontender, nondistended MUSCULOSKELETAL: generalized weakness, L wrist in splint SKIN: warm and dry NEUROLOGIC: No facial palsy, no dysarthria. CN 2-12 grossly intact, normal cognition but obvious memory issues, oriented, normal speech PSYCHIATRIC: alert cooperative and oriented to person, place and time. Results & Data Medications Administered Current Inpatient Medications Acetaminophen (Tylenol) 650 mg PO Q4H PRN PRN Reason: Pain or Fever Stop: 09/12/18 01:09 Amitriptyline HCl (Elavil) 10 mg PO HS [facility] Stop: 09/13/18 20:59 Last Admin: 08/15/18 21:28 Dose: 10 mg Artificial Tears (Artificial Tears) 2 drops OPL Q4H PRN PRN Reason: dry, irritated eyes Stop: 09/12/18 17:41 Aspirin (Ecotrin) 81 mg PO DAILY [facility] Stop: 09/12/18 08:59 Last Admin: 08/15/18 07:54 Dose: 81 mg Clopidogrel Bisulfate (Plavix) 75 mg PO DAILY [facility] Stop: 09/12/18 08:59 Last Admin: 08/15/18 07:56 Dose: 75 mg Dextrose (Dextrose 50%) 25 - 50 ml IV UD PRN; Protocol PRN Reason: Hypoglycemia Protocol Stop: 09/12/18 01:09 Docusate Sodium (Colace) 100 mg PO BID [facility] Stop: 09/12/18 08:59 Last Admin: 08/15/18 21:33 Dose: 100 mg Enoxaparin Sodium (Lovenox) 40 mg SQ QAM [facility] Stop: 09/13/18 08:59 Last Admin: 08/15/18 07:57 Dose: 40 mg Ezetimibe/Simvastatin (Vytorin 10/40 Mg) 1 tab PO DAILY [facility] Stop: 09/12/18 08:59 Last Admin: 08/15/18 07:54 Dose: 1 tab Famotidine (Pepcid) 20 mg PO BID [facility] Stop: 09/12/18 08:59 Last Admin: 08/15/18 21:29 Dose: 20 mg Furosemide (Lasix) 80 mg PO QAM [facility] Stop: 09/14/18 08:59 Last Admin: 08/15/18 07:52 Dose: 80 mg Furosemide (Lasix) 40 mg PO QPM [facility] Stop: 09/13/18 20:59 Last Admin: 08/15/18 21:26 Dose: 40 mg Gabapentin (Neurontin) 300 mg PO TID [facility]PHEN Stop: 09/12/18 13:59 Last Admin: 08/15/18 21:29 Dose: 300 mg Glucagon (Glucagen) 1 mg SQ UD PRN; Protocol PRN Reason: Hypoglycemia Protocol Stop: 09/12/18 01:09 Glucose (Glucose 40%) 15 - 30 gm PO UD PRN; Protocol PRN Reason: Hypoglycemia Protocol Stop: 09/12/18 01:09 Glucose (Dex4 Glucose) 4 - 8 tabs PO UD PRN; Protocol PRN Reason: Hypoglycemia Protocol Stop: 09/12/18 01:09 Prochlorperazine 5 mg/ Syringe 5 mls @ 5 mls/min IV Q6H PRN PRN Reason: Nausea And Vomiting Stop: 09/12/18 01:09 Insulin Aspart (Novolog Flexpen) 0 units SC ACHS [facility] Stop: 09/12/18 01:59 Last Admin: 08/15/18 21:36 Dose: 1 units Insulin Glargine (Lantus Solostar Pen) 15 units SQ BID [facility] Stop: 09/12/18 20:59 Last Admin: 08/15/18 21:34 Dose: 15 units Ipratropium [place] (Atrovent 0.02% 0.5mg/2.5ml) 0.5 mg INH Q4H PRN PRN Reason: Shortness Of Breath Or Wheezing Stop: 09/12/18 03:01 Isosorbide Mononitrate (Imdur Extended Rel) 120 mg PO DAILY [facility] Stop: 09/14/18 08:59 Last Admin: 08/15/18 07:53 Dose: 120 mg Levalbuterol HCl (Xopenex 1.25mg/0.5ml Neb) 1.25 mg INH Q4H PRN PRN Reason: Shortness Of Breath Or Wheezing Stop: 09/12/18 03:01 Metoprolol Succinate (Toprol Xl) 100 mg PO DAILY [facility] Stop: 09/14/18 08:59 Last Admin: 08/15/18 08:01 Dose: 100 mg Miscellaneous (Carbohydrates For Hypoglycemia) 15 - 30 gm PO UD PRN PRN Reason: Hypoglycemia Treatment Stop: 09/12/18 01:09 Morphine Sulfate (Morphine Sulfate) 4 mg IV Q4H PRN PRN Reason: Pain Stop: 08/27/18 01:09 Naphazoline HCl/Pheniramine Maleate (Visine-A) 1 drops OP Q6H [facility] Stop: 09/13/18 17:29 Last Admin: 08/15/18 21:39 Dose: 1 drops Nitroglycerin (Nitrostat) 0.4 mg SL UD PRN PRN Reason: Chest Pain Stop: 09/12/18 01:09 Pantoprazole Sodium (Protonix) 40 mg PO DAILY [facility] Stop: 09/13/18 08:59 Last Admin: 08/15/18 07:54 Dose: 40 mg Polyethylene Glycol (Miralax Powder Packet) 17 gm PO DAILY [facility] Stop: 09/13/18 08:59 Last Admin: 08/15/18 07:58 Dose: 17 gm Potassium Chloride (Klor-Con M20) 40 meq PO BID [facility] Stop: 09/13/18 09:14 Last Admin: 08/15/18 21:27 Dose: 40 meq Spironolactone (Aldactone) 25 mg PO DAILY [facility] Stop: 09/14/18 08:59 Last Admin: 08/15/18 07:53 Dose: 25 mg Tamsulosin HCl (Flomax) 0.4 mg PO DAILY [facility] Stop: 09/13/18 08:59 Last Admin: 08/15/18 07:53 Dose: 0.4 mg Tramadol HCl (Ultram) 25 mg PO Q4H PRN PRN Reason: Pain Stop: 09/12/18 01:09 Last Admin: 08/14/18 19:24 Dose: 25 mg
[2018-08-15] MEDS: FUROSEMIDE 40 MG TAB PO SCH (21:26)
[2018-08-15] MEDS: AMITRIPTYLINE HCL 10 MG TAB PO SCH (21:28)
[2018-08-16] MEDS: NAPHAZOLIN/PHENIRAMIN OPH SOLN 75 DROPS/5 ML BTL OP SCH ×2 (05:29→11:36)
[2018-08-16] MEDS: TAMSULOSIN HCL 0.4 MG CAP PO SCH (07:53)
[2018-08-16] MEDS: METOPROLOL SUCC 50MG EXT REL TAB PO SCH (07:54)
[2018-08-16] MEDS: PANTOprazole 40 MG TAB PO SCH (07:54)
[2018-08-16] MEDS: ASPIRIN 81 MG ECTAB PO SCH (07:54)
[2018-08-16] MEDS: DOCUSATE SODIUM 100 MG CAP PO SCH (07:55)
[2018-08-16] MEDS: ISOSORBIDE MONO EXTENDED REL 60 MG TABCR PO SCH (07:56)
[2018-08-16] MEDS: SPIRONOLACTONE 25 MG TAB PO SCH (07:57)
[2018-08-16] MEDS: FUROSEMIDE 80 MG TAB PO SCH (07:57)
[2018-08-16] MEDS: CLOPIDOGREL BISULFATE 75 MG TAB PO SCH (07:57)
[2018-08-16] MEDS: GABAPENTIN 300 MG CAP PO SCH ×2 (07:57→12:23)
[2018-08-16] MEDS: POTASSIUM CHLORIDE 20 MEQ TABCR PO SCH (07:57)
[2018-08-16] MEDS: EZETIMIBE/SIMVASTATIN 10/40MG 1 TAB TAB PO SCH (07:57)
[2018-08-16] MEDS: FAMOTIDINE 20 MG TAB PO SCH (07:57)
[2018-08-16] MEDS: ENOXAPARIN INJ 40 MG/0.4 ML SYR SQ SCH (07:58)
[2018-08-16] MEDS: POLYETHYLENE (MIRALAX) 17 GM PACK PO SCH (08:06)
[2018-08-16] MEDS: INSULIN GLARGINE SOLOSTAR 100 UNITS/ML 3 ML PEN SQ SCH (08:24)
[2018-08-16] MEDS: INSULIN ASPART 100 UNITS/ML 3 ML PEN SC SCH ×2 (08:24→12:23)
--- NOTE | 2018-08-18 13:07 | Discharge Summary ---
Date of Service August 18, 2018 Admission HPI Per Admitting Provider History obtained from patient, family, and records. Patient is a fair historian. Medical history significant for chronic systolic heart failure secondary to ischemic cardiomyopathy, CAD status post CABG (1999, [facility]), hx of angioplasty/ICD (04/2018, [facility]), chronic respiratory failure on home O2, hypertension, hyperlipidemia, DM 2, insulin requiring, chronic anemia baseline hemoglobin of 12, past tobacco abuse. Recent confinement May 2018 [facility] for decompensated heart failure. 3 weeks ago. patient had a mechanical fall at home causing some soreness on the left chest and left forearm. Patient evaluated at [place] [facility]. Imaging negative for rib fractures. The last week patient noted increasing shortness of breath mostly on exertion, feels he is retaining fluid again. Denies chest pain other than left-sided rib pain from few weeks ago. No unusual cough symptoms. Some leg swelling noted. Compliant with home diuretics. Patient admits that he has trouble complying with fluid restriction recommended by [place] fitting room checker. Patient brought to [place] emergency room for evaluation yesterday afternoon. SBP noted to be 90s, patient received fluid bolus as per ER note. CT chest showed : 1. Acute appearing nondisplaced left lateral seventh rib fracture. 2. Moderate bilateral pleural effusions. 3. No pneumothorax. 4. Moderate compressive subsegmental atelectasis. 5. No pulmonary emboli are seen. 6. 48 x [address] ascending aortic aneurysm. CT abdomen pelvis showed : 1. Stranding in the subcutaneous fat in the left flank appears asymmetric, may reflect an area of soft tissue contusion. 2. No traumatic injury in the abdominal pelvic viscera. No acute bony pathology. 3. Incidental findings include question early cirrhosis, which may be cardiogenic, distal diverticulosis. Scattered mild free fluid probably related to CHF or cirrhosis. Left hand x-ray showed: IMPRESSION: Acute intra-articular fracture, base of the fifth metacarpal, minimal dorsal angulation of the diaphysis. EKG showed paced rhythm. Troponin noted to be 3.7. Patient transferred to [facility] for Cardiology services due to bed unavailability at [place] [facility]. Left hand splint applied at [place] emergency room prior to departure for [facility]. Patient noted to cough when PCU nurse attempted to give him some water/ice. Medical History as above Surgical History : CABG, ICD, eye surgery, humerus surgery Family History : Heart disease, stroke Personal/Social history : Past tobacco abuse, no EtOH intake, retired lift truck mechanic Admission Exam Per Admitting Provider GENERAL: Comfortable, pleasant, no respiratory distress SKIN: Pallor , warm HEENT: Pale palpebral conjunctivae, no ptosis, moist buccal mucosa, nasal cannula in place NECK : Supple, no tenderness CHEST : Decreased breath sounds, occasional wheeze , tenderness left chest wall HEART : Diminished S1-S2, systolic murmur ABDOMEN: Some distention, nontender EXTREMITIES : minimal LE swelling/tenderness, LUE splint NEUROLOGIC : Coherent, no facial asymmetry, no other gross focality, gait and stance not assessed Principal Diagnosis 1. Acute decompensated systolic heart failure. 2. Troponin elevation, likely secondary to demand ischemia. 3. Underlying severe coronary artery disease with very limited viability by cardiac MRI, 02/2018. 4. Ischemic cardiomyopathy, ejection fraction 30%-35%, status post ICD placement. Discharge Exam CONSTITUTIONAL: WNWD, vitals as above, generally well-appearing EYES: conjunctivae are less irritated today, no scleral icterus ENT: MMM NECK: trachea midline, no lymphadenopathy, normal thyroid RESPIRATORY: clear to auscultation bilaterally, no crackles, rales or wheezes, normal respiratory effort CARDIOVASCULAR: regular rate and rhythm, S1 and 2 heard without murmurs, gallops or rubs, no JVD, no lower extremity swelling bilaterally GASTROINTESTINAL: normal bowel sounds, soft, nontender, nondistended MUSCULOSKELETAL: generalized weakness, L wrist in splint SKIN: warm and dry NEUROLOGIC: No facial palsy, no dysarthria. CN 2-12 grossly intact, normal cognition but obvious memory issues, oriented, normal speech PSYCHIATRIC: alert cooperative and oriented to person, place and time. Discharge Data Allergies Allergy/AdvReac Type Severity Reaction Status Date / Time SUZETTE Inhibitors AdvReac Verified 08/13/18 01:08 Consultations 08/13/18 01:10 Consult Cardiology Routine 08/13/18 01:12 Consult Case Management - Discharge Planning Routine 08/13/18 02:38 Consult Orthopedic Surgery Routine 08/13/18 04:28 Consult Health Information Management Routine Hospital Course (1) Acute on chronic systolic heart failure: (2) Chronic hypoxemic respiratory failure: (3) Conjunctivitis: (4) Left rib fracture: (5) Left wrist fracture: (6) DMII (diabetes mellitus, type 2): 78-year-old man who was admitted directly from [facility] after presenting to the ER with increased shortness of breath on exertion, and stating he feels he is retaining fluid again. He notably had a recent fall 4 weeks ago and reports left-sided rib pain as well as left wrist pain related to a left rib fracture and left distal radial fracture, respectively. He was admitted to the hospitalist service for decompensated heart failure in the setting of chronic salt systolic heart failure secondary to ischemic cardiomyopathy with a history of ICD. He notably had chronic respiratory failure on supplemental home oxygen. His had reported he was requiring more oxygen with ambulation in the last few weeks. Orthopedics was consulted and recommended continued volar splint for comfort and nonweightbearing of the left upper extremity along with ice and elevation. Cardiology was also consulted. From a cardiac standpoint, given the patient's extensive history of CABG and ischemic cardiomyopathy status post ICD it was not felt that further ischemic workup or intervention would be beneficial at this time. Diuresis was continued for volume overload, however, the patient was notably not far off his baseline dry weight. No other medication changes were made to outpatient medical record. He appeared to be more euvolemic the following day and outpatient diuretics were reinstituted. There was no new wall motion noted on echocardiogram compared to his MRI report revealing the reduced ejection fraction. There was no sign of active ischemia. Recommendation was made for close follow-up with the patient's outpatient primary fitting room checker upon discharge. Importantly, the patient remained hemodynamically stable while with no acute events on telemetry during his hospitalization. Additionally, he was evaluated by physical therapy and was noted to have an oxygen saturation of 84% . Per the therapist it took 3-4 minutes for the patient's oxygen to increase to 93% on 2 L/min. Therefore, it was recommended to increase the patient's oxygen during ambulation. A prescription was given to him for this on discharge. He was discharged in stable condition with close primary care follow -up recommended. Total Time Total Time Spent Total Time Spent (In Minutes): 60 Total Time Includes: Examination of the Patient, Discharge Planning, Medication Reconciliation and Communication With Other Providers Discharge Plan Discharge Items Patient Disposition: Home - Self-Care Reason For Visit: CHF, NSTEMI Discharge Diagnosis: 1. Acute decompensated systolic heart failure. 2. Troponin elevation, likely secondary to demand ischemia. 3. Underlying severe coronary artery disease with very limited viability by cardiac MRI, 02/2018. 4. Ischemic cardiomyopathy, ejection fraction 30%-35%, status post ICD placement. Condition: Good Discharge Goals: Improve disease control Activity: Resume your previous activity Non-emergency contact: Primary Care Provider and [employer] Call non-emergency contact if: you have any medication questions, your symptoms worsen, your pain is not controlled and you have a fever Follow-up/Referrals: Adrienne Bhat M.D. [Primary Care Provider] - Diet: Carb Consistent or DM2 and Heart Healthy Addtl Provider Instructions: Please take all medications as instructed on discharge list. Please ensure your oxygen supply company receives the oxygen prescription given to you at discharge. It is recommended that you follow-up with your primary care provider within one week of discharge. It was a pleasure taking care of you! Please call if you have any questions or problems. You can reach a [facility] hospitalist on duty at [facility] 24 hours a day by calling [phone]. Take care of yourself. Liliane Gross, DO [facility] Prescriptions: Continue aspirin [Aspir-81] 81 mg Tablet,Delayed Release (Dr/Ec) 81 mg PO DAILY RF: 0 clopidogrel 75 mg tablet 75 mg PO DAILY RF: 0 docusate sodium 100 mg Capsule 100 mg PO BID RF: 0 ezetimibe-simvastatin [Vytorin 10-40] 10-40 mg Tablet 1 tab PO DAILY RF: 0 famotidine 20 mg tablet 20 mg PO BID RF: 0 furosemide 40 mg tablet 80 mg PO QAM RF: 0 furosemide 40 mg tablet 40 mg PO QPM RF: 0 Novolog Mix 70-30 U-100 Insuln 20 units SC BID RF: 0 polyethylene glycol 3350 [Miralax] 17 gram/dose Powder 17 g PO DAILY RF: 0 potassium chloride 20 mEq tablet,ER particles/crystals 20 meq PO TID RF: 0 gabapentin 300 mg capsule 300 mg PO TID RF: 0 amitriptyline 10 mg tablet 10 mg PO HS RF: 0 spironolactone 25 mg tablet 25 mg PO DAILY RF: 0 tamsulosin 0.4 mg capsule 0.4 mg PO DAILY RF: 0 isosorbide mononitrate 60 mg tablet extended release 24 hr 120 mg PO DAILY RF: 0 omeprazole 20 mg capsule,delayed release(DR/EC) 20 mg PO DAILY RF: 0 metoprolol succinate [Toprol XL] 100 mg Tablet Extended Release 24 Hr 100 mg PO DAILY RF: 0 Visit Report Forms: Replaced By [facility] Portal Stand-Alone Forms: Replaced By [facility] Discharge Orders: Discharge Order (Routine); Ordered 08/16/18 Ordered By: Liliane Gross Admission Data Admit Date/Time: 08/13/18 01:05 Attending Provider: Liliane Gross Admit Provider: Tee Phillips Primary Care Provider: Adrienne Bhat Other Providers: Bridger Roth ; Rosalino Santa ; Channing Humphreys ; Jani Villegas ; Luna Izquierdo Thomas J ; Libra [place] ; Jayden Nix ; Eric Gonzalez ; Kyler Vides ; Estevan Barry Jr ; Eric Rowe Andrew J. ; Kyler Cox ; Lee Retana ; Nelson Mcgowan ; Bryson Gipson ; Yoseph Loredo ; Nicholas Ferrer ; Deonte Peter ; Sid Reyes ; Libra Whiting ; Huber Vasquez ; Jaison Priest ; Bridger Rudolph ; Stanislav Flores Service: Telemetry Other Interventions: Discharge Summary Assessment (RN) Last Done: 08/16/18 13:25 DC Date/Time DO NOT enter until pt leaves facility: 08/16/18 14:25
== END 2018-08-16 14:25 | disposition home or self-care (01) | DRG 292 ==
LOC: 2S 08-13 01:05 → SUATTDRO 08-13 01:05 → 2N 08-14 18:24